=== PATIENT | male | born 1970 | race Caucasian/White ===

== ENCOUNTER 2020-12-23 12:58 | Emergency (ER) | payer MEDICARE, SELFPAY ==
[2020-12-23 13:07] VITALS: BP 111/91; PULSE 78; RESP 16; TEMP 36.1; O2SAT 99
[2020-12-23 15:05] VITALS: BP 143/85; PULSE 65; RESP 18; O2SAT 99
--- NOTE | 2020-12-23 15:43 | PC.NURSE ---
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
--- NOTE | 2020-12-23 15:45 | PC.NURSE ---
Pt reported he was able to void prior to procedure.
--- NOTE | 2020-12-23 15:50 | ED.GENADULT ---
HPI - General Adult General Chief complaint: Unspecified Stated complaint: erection Time Seen by Provider: 12/23/20 14:53 Source: patient Mode of arrival: ambulatory Limitations: no limitations History of Present Illness HPI narrative: This is a 50 year old male that presents to the ER for priapism. Reports he has had an erection since 10PM last night. Reports he does have history of erectile dysfunction and uses injections for this. He did an injection the last 3 nights in a row. Reports he has pain to the area and is feeling some tingling. His urologist is Dr. Quinteros. He called the office and was prompted to be seen in the ER. Denies fever. Related Data Home Medications Medication Instructions Recorded Confirmed atorvastatin [Lipitor] 10 mg PO DAILY 12/23/20 insulin lispro [Humalog Pen] SUBCUT 12/23/20 12/23/20 lisinopril 5 mg PO DAILY 12/23/20 methadone 10 mg PO Q6H 12/23/20 Allergies Allergy/AdvReac Type Severity Reaction Status Date / Time No Known Allergies Allergy Verified 12/23/20 14:57 Review of Systems Review of Systems: CONSTITUTIONAL: Denies fever GENITOURINARY: Denies dysuria All systems reviewed & are unremarkable except as noted in HPI and below PMFSH Past Medical History Medical History (Updated 12/23/20 @ 16:47 by Dian Tatum PA-C) History of diabetes mellitus History of hyperlipidemia History of hypertension Social History Social History (Updated 12/23/20 @ 16:25 by Kenny Hoskins MD) Social History: He is on disability. 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 Exam Narrative: GENERAL: Well-appearing, well-nourished, and in no acute distress. HEAD: Normocephalic, atraumatic. EYES: EOMI. EXTREMITIES: Normal range of motion. No edema. SKIN: Warm, dry, no rash. NEURO: No focal deficits. Alert and oriented x3. PSYCH: Normal mood and affect MALE GENITAL: Erection present. Otherwise normal appearing genitalia Course Vital Signs Vital signs: Vital Signs Temperature 97.0 F L 12/23/20 13:07 Pulse Rate 78 12/23/20 13:07 Respiratory Rate 16 12/23/20 13:07 Blood Pressure 111/91 H 12/23/20 13:07 Pulse Oximetry 99 12/23/20 13:07 Temperature 97.0 F L 12/23/20 13:07 Pulse Rate 65 12/23/20 15:05 Respiratory Rate 18 12/23/20 15:05 Blood Pressure 143/85 H 12/23/20 15:05 Pulse Oximetry 99 12/23/20 15:05 Medical Decision Making MDM Narrative Medical decision making narrative: Patient presents to the emergency department for priapism. Has history of erectile dysfunction and uses injections for this. Had priapism since his injection [address] Hoskins came down to evaluate the patient and did phenylephrine injections with relief. Patient instructed to ice and avoid use of his injection and sexual intercourse over the next week. He was given warnings to return to the ER Vital Signs Vital Signs: Vital Signs Temperature 97.0 F L 12/23/20 13:07 Pulse Rate 78 12/23/20 13:07 Respiratory Rate 16 12/23/20 13:07 Blood Pressure 111/91 H 12/23/20 13:07 Pulse Oximetry 99 12/23/20 13:07 Temperature 97.0 F L 12/23/20 13:07 Pulse Rate 65 12/23/20 15:05 Respiratory Rate 18 12/23/20 15:05 Blood Pressure 143/85 H 12/23/20 15:05 Pulse Oximetry 99 12/23/20 15:05 Critical Care Time Critical Care Time Critical Care Time: No Discharge Plan Discharge Clinical Impression: Priapism Patient Disposition: Home, Self-Care Condition: Stable Instructions: Priapism (ED) Additional Instructions: Return to the ER if you experience fever, dysuria, an erection that lasts >4 hours, or any other symptoms that are concerning to you Ice to the area. Avoid your injections and sexual intercourse the at least a week Follow-up with Dr. Quinteros as needed Prescriptions: No Action atorvastatin [Lipitor] 10 mg Tablet 10 mg PO DAILY RF: 0 methadone 10 mg Tablet 10 mg PO Q6H RF: 0 lisinopril 5 mg
--- NOTE | 2020-12-23 16:24 | WPDURCON ---
Assessment and Plan Assessment and plan (1) Priapism: Code(s): N48.30 - Priapism, unspecified Status: Acute Assessment and Plan: Patient was placed on a monitor. We instituted phenylephrine injections. The nurse practitioner and I did 2 injections on each side bleeding in 3-5 minutes in between injections. There was resolution of the priapism. There was softening of the corporal bodies. He was kept on a monitor with every injection. He was sent home in stable condition with an ice pack. I asked him to refrain from using his Tri Mix and sexual intercourse for the next week. I also informed him if he has recurrence of the priapism to re-presented to the emergency room. He agreed with our plan. Urology Consult Note HPI Date Seen: 12/23/20 Primary Care Provider: Sotero Baca, Consult Narrative Narrative: Arjun Galvez is a 50 year old male with a history of hypogonadism testosterone injections. He also has erectile dysfunction for which he takes low-dose TriMix. He states he has a new girlfriend. He used his TriMix on Wednesday, Wednesday, and Wednesday. His last dose of TriMix was about 15 hours ago. He has had a persistent painfull erection ever since. He presents to the ER with priapism. He has no prior episodes of priapism. Review of Systems Review of Systems: All systems reviewed & are unremarkable except as noted in HPI and below PMFSH Past Medical History Medical History (Updated 12/23/20 @ 16:26 by Kenny Hoskins MD) History of diabetes mellitus History of hyperlipidemia History of hypertension Social History Social History (Updated 12/23/20 @ 16:25 by Kenny Hoskins MD) Social History: He is on disability. 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 Meds Home Medications and Allergies Home Medications Medication Instructions Recorded Confirmed Type atorvastatin [Lipitor] 10 mg PO DAILY 12/23/20 History insulin lispro [Humalog Pen] SUBCUT 12/23/20 12/23/20 History lisinopril 5 mg PO DAILY 12/23/20 History methadone 10 mg PO Q6H 12/23/20 History Allergies Allergy/AdvReac Type Severity Reaction Status Date / Time No Known Allergies Allergy Verified 12/23/20 14:57 Vital Signs Vital Signs - 24 hr 12/23/20 13:07 12/23/20 15:05 Temperature 97.0 F L Pulse Rate 78 65 Respiratory Rate 16 18 Blood Pressure 111/91 H 143/85 H Pulse Oximetry 99 99 Exam Const: General: cooperative, healthy appearing, alert and awake HENMT: Head: normal to inspection Ears: hearing grossly normal bilaterally Face and sinus: normal facial exam Eyes: General: appearance normal, both eyes and all related structures Neck: Neck: normal visual inspection and full ROM Resp: Effort & Inspection: normal respiratory effort, able to speak in complete sentences and no cough GI: Inspection: normal to inspection : Male General Exam: Yes normal external exam Penis: Yes normal penis Meatus: meatus normal Scrotum: scrotum normal Other: He has a priapism. Corporal bodies are firm. Spongiosum is soft. Back/Spine/Pelvis: Back: no CVA tenderness Skin: General skin exam: normal color and no rashes or lesions noted Neuro: General: oriented to person, oriented to place and oriented to time Extrem: General: normal to inspection
[2020-12-23 17:21] VITALS: BP 138/76; PULSE 68; RESP 14; TEMP 36.8; O2SAT 100
== END 2020-12-23 17:24 | disposition home or self-care (01) ==
PROVIDERS: Emergency Provider Emergency Medicine; PCP Family Medicine
DX: N48.33 Priapism, drug-induced (principal); E11.9 Type 2 diabetes mellitus without complications; E29.1 Testicular hypofunction; E78.5 Hyperlipidemia, unspecified; I10 Essential (primary) hypertension; Z79.4 Long term (current) use of insulin
CPT/HCPCS: 54220; 99282